=== PATIENT | male | born 1965 | race Caucasian/White ===

== ENCOUNTER 2017-10-15 14:31 | Emergency (ER) | payer SELFPAY ==
[~2017-10-15] VITALS: Ht 162.6 cm; Wt 86.2 kg
[2017-10-15] MEDS ORDERED: AMBIEN (15:32)
[2017-10-15] MEDS ORDERED: LORAZEPAM (15:32)
[2017-10-15] MEDS ORDERED: QUET300T2 PO (15:32)
[2017-10-15] MEDS ORDERED: EFFEXOR (15:32)
== END 2017-10-15 15:32 | disposition home or self-care (01) ==
LOC: ER 14:32
DX: F32.9 Major depressive disorder, single episode, unspecified (principal); F41.9 Anxiety disorder, unspecified
CPT/HCPCS: 99284; A4663